=== PATIENT | male | born 1980 | race Caucasian/White ===

== ENCOUNTER 2023-10-06 09:02 | Emergency (ER) | payer SELFPAY ==
[2023-10-06 09:18] VITALS: TEMP 97.2
--- NOTE | 2023-10-06 09:18 | ERPHSYRPT ---
- History of Present Illness Time Seen by Provider: 10/06/23 09:15 Source: patient Exam Limitations: no limitations Physician History: Patient is a 42-year-old male presents to our emergency department for evaluation of nonspecific complaints x 2 days. Patient complaining of generalized bodyaches intermittent abdominal cramping headache. Symptoms have been ongoing for the past several days. No associated chest pain or shortness of breath patient works as a used armored car guard. No obvious exposures. Patient has been tested 3 times for COVID. at bedside reports all 3 test were negative. No nausea no vomiting no diarrhea. Patient's last bowel movement was 3 days ago. states patient does not get regular checkups. He reports intermittent fevers at home. Patient currently afebrile. Patient states he is otherwise healthy and not taking any medications. and patient voiced no other complaints or concerns at this time. Portions of this note were created with voice recognition technology. There may be grammatical, spelling, punctuation or sound alike errors Timing/Duration: week(s) (2 days) Severity: moderate Modifying Factors: Improves With: nothing Associated Symptoms: other (Intermittent abdominal cramping no abdominal pain at the present time.) Allergies/Adverse Reactions: No Known Drug Allergies Allergy (Unverified 10/06/23 09:22) - Review of Systems Constitutional: No Symptoms, No Fever, No Chills Eyes: No Symptoms Ears, Nose, & Throat: No Symptoms Respiratory: No Symptoms, No Cough, No Dyspnea Cardiac: No Symptoms, No Chest Pain, No Edema, No Syncope Abdominal/Gastrointestinal: No Symptoms, No Abdominal Pain, No Nausea, No Vomiting, No Diarrhea Genitourinary Symptoms: No Symptoms, No Dysuria Musculoskeletal: No Symptoms, No Back Pain, No Neck Pain Skin: No Symptoms, No Rash Neurological: No Symptoms, No Dizziness, No Focal Weakness, No Sensory Changes Psychological: No Symptoms Endocrine: No Symptoms Hematologic/Lymphatic: No Symptoms Immunological/Allergic: No Symptoms All Other Systems: Reviewed and Negative - Nursing Vital Signs Nursing Vital Signs: Initial Vital Signs Temperature 97.2 F 10/06/23 09:07 Pulse Rate 102 H 10/06/23 09:07 Respiratory Rate 18 10/06/23 09:07 Blood Pressure 143/97 10/06/23 09:07 O2 Sat by Pulse Oximetry 96 10/06/23 09:07 Pain Scale Pain Intensity 0 - Physical Exam General Appearance: no apparent distress, alert Eye Exam: PERRL/EOMI, eyes nml inspection Ears, Nose, Throat Exam: normal ENT inspection, moist mucous membranes Neck Exam: normal inspection, non-tender, supple, full range of motion Respiratory Exam: normal breath sounds, lungs clear, No respiratory distress Cardiovascular Exam: regular rate/rhythm, normal heart sounds, normal peripheral pulses Gastrointestinal/Abdomen Exam: soft, normal bowel sounds, No tenderness, No mass Back Exam: normal inspection, normal range of motion, No CVA tenderness, No vertebral tenderness Extremity Exam: normal inspection, normal range of motion, pelvis stable Neurologic Exam: alert, oriented x 3, cooperative, normal mood/affect, sensation nml, No motor deficits Skin Exam: normal color, warm, dry, No rash Lymphatic Exam: No adenopathy SpO2 Interpretation: normal SpO2: 96 O2 Delivery: Room Air - Course Nursing assessment & vital signs reviewed: Yes - CT Exams Abdomen/Pelvis CT Interpretation: Tele-radiologist Report (Cystitis, fatty liver, splenomegaly bilateral gynecomastia) Ordered Tests: Active Orders 24 hr Category Date Time Status Drapery Operator STAT Care 10/06/23 09:18 Active IV Insertion STAT Care 10/06/23 09:18 Active Pulse Oximetry (ED) STAT Care 10/06/23 09:18 Active ABDOMEN AND PELVIS W/0 CONTRAS [CT] Stat Exams 10/06/23 11:35 Completed BLOOD CULTURE Stat Lab 10/06/23 09:45 Received CBC W DIFF Stat Lab 10/06/23 09:18 Completed CMP Stat Lab 10/06/23 09:45 Completed CULTURE,URINE Stat Lab 10/06/23 09:31 Received Lactic Acid Stat Lab 10/06/23 09:35 Completed MONO SCREEN Stat Lab 10/06/23 09:45 Completed POCT GLUCOSE Stat Lab 10/06/23 13:15 Completed TROPONIN Q4H Lab 10/06/23 09:45 Completed TROPONIN Q4H Lab 10/06/23 17:30 Ordered UA W/RFX UR CULTURE Stat Lab 10/06/23 09:31 Completed Medication Summary Discontinued Medications Generic Name Dose Route Start Last Admin Trade Name Freq PRN Reason Stop Dose Admin Sodium Chloride 1,000 mls @ 999 mls/hr 10/06/23 09:18 10/06/23 10:37 Sodium Chloride 0.9% 1000 Ml IV 10/06/23 10:18 Infused .Q1H1M STA Infusion Sodium Chloride Confirm 10/06/23 09:27 Sodium Chloride 0.9% 1000 Ml Administered 10/06/23 09:28 Dose 1,000 mls @ ud .ROUTE .STK-MED ONE Levofloxacin/Dextrose 500 mg in 100 mls @ 100 mls/hr 10/06/23 11:27 10/06/23 12:47 Levofloxacin 500mg/100ml D5w IV 10/06/23 12:26 Infused STAT STA Infusion Levofloxacin/Dextrose Confirm 10/06/23 11:31 Levofloxacin 500mg/100ml D5w Administered 10/06/23 11:32 Dose 500 mg in 100 mls @ ud IV .STK-MED ONE Lactated Ringer's 1,000 mls @ 999 mls/hr 10/06/23 11:36 10/06/23 12:47 Lactated Ringers IV 10/06/23 12:36 Infused .Q1H1M ONE Infusion Lactated Ringer's Confirm 10/06/23 11:39 Lactated Ringers Administered 10/06/23 11:40 Dose 1,000 mls @ ud IV .STK-MED ONE Ketorolac Tromethamine 30 mg 10/06/23 09:19 10/06/23 09:27 Ketorolac Tromethamine 30 Mg/Ml Inj IV 10/06/23 09:20 30 mg STAT ONE Administration Ketorolac Tromethamine Confirm 10/06/23 09:26 Ketorolac Tromethamine 30 Mg/Ml Inj Administered 10/06/23 09:27 Dose 30 mg .ROUTE .STK-MED ONE Metformin HCl 500 mg 10/06/23 13:42 10/06/23 13:52 Metformin Hcl 500 Mg Tablet PO 10/06/23 13:43 500 mg ONCE STA Administration Prochlorperazine Edisylate 10 mg 10/06/23 09:20 10/06/23 09:27 Prochlorperazine Edisylate 10 Mg/2 Ml Vial IV 10/06/23 09:21 10 mg STAT ONE Administration Prochlorperazine Edisylate Confirm 10/06/23 09:26 Prochlorperazine Edisylate 10 Mg/2 Ml Vial Administered 10/06/23 09:27 Dose 10 mg .ROUTE .STK-MED ONE Lab/Rad Data: Laboratory Result Diagrams 10/06/23 09:18 10/06/23 09:45 Laboratory Results 10/06/23 10/06/23 10/06/23 Range/Units 13:15 09:50 09:45 WBC (4.23-9.07) x10^3/uL RBC (4.63-6.08) x10^6/uL Hgb (13.7-17.5) g/dL Hct (40.1-51.0) % MCV (79.0-92.2) fL MCH (25.7-32.2) pg MCHC (32.3-36.5) g/dL RDW (11.6-14.4) % Plt Count (163-337) x10^3/uL MPV (9.4-12.4) fL Gran % (34.0-67.9) % Immature Gran % (Auto) (0.001-0.429) % Nucleat RBC Rel Count (0.00-0.2) % Eos # (Auto) (0.04-0.54) x10^3/uL Immature Gran # (Auto) (0.001-0.031) x10^3u/L Absolute Lymphs (auto) (1.32-3.57) x10^3/uL Absolute Monos (auto) (0.30-0.82) x10^3/uL Absolute Nucleated RBC (0.00-0.012) x10^3u/L Lymphocytes % (21.8-53.1) % Monocytes % (5.3-12.2) % Eosinophils % (0.8-7.0) % Basophils % (0.2-1.2) % Absolute Granulocytes (1.78-5.38) x10^3/uL Basophils # (0.01-0.08) x10^3/uL Sodium (135-145) mmol/L Potassium (3.5-5.1) mmol/L Chloride (98-107) mmol/L Carbon Dioxide (22-30) mmol/L Anion Gap (5-15) MEQ/L BUN (9-20) mg/dL Creatinine (0.66-1.25) mg/dL Estimated GFR ML/MIN Glucose (74-106) mg/dL POC Glucometer 281 H (74 to 106) mg/dL Lactic Acid (0.4-2.0) Calcium (8.4-10.2) mg/dL Total Bilirubin (0.2-1.3) mg/dL AST (17-59) U/L ALT (0-50) U/L Alkaline Phosphatase (38-126) U/L Troponin I (0.000-0.033) ng/mL Serum Total Protein (6.3-8.2) g/dL Albumin (3.5-5.0) g/dL Urine Color (Yellow) Urine Appearance (Clear) Urine pH (4.6-8.0) Ur Specific [place] (1.005-1.030) Urine Protein (Negative) Urine Glucose (UA) (Negative) mg/dL Urine Ketones (Negative) Urine Blood (Negative) Urine Nitrite (Negative) Urine Bilirubin (Negative) Urine Urobilinogen (0.2) mg/dL Ur Leukocyte Esterase (Negative) U Hyaline Cast (Auto) (0-2) /LPF Urine Microscopic RBC (0-5) /HPF Urine Microscopic WBC (0-5) /HPF Ur Epithelial Cells (None Seen) /HPF Urine Bacteria (None Seen) /HPF Ur Yeast w Hyphae (None Seen) /HPF Urine Culture Reflexed (NO) Monoscreen NEGATIVE (NEGATIVE) Influenza Type A Ag NEGATIVE (NEGATIVE) Influenza Type B Ag NEGATIVE (NEGATIVE) RSV (PCR) NEGATIVE (NEGATIVE) SARS-CoV-2 (PCR) NEGATIVE (NEGATIVE) 10/06/23 10/06/23 10/06/23 Range/Units 09:45 09:45 09:35 WBC (4.23-9.07) x10^3/uL RBC (4.63-6.08) x10^6/uL Hgb (13.7-17.5) g/dL Hct (40.1-51.0) % MCV (79.0-92.2) fL MCH (25.7-32.2) pg MCHC (32.3-36.5) g/dL RDW (11.6-14.4) % Plt Count (163-337) x10^3/uL MPV (9.4-12.4) fL Gran % (34.0-67.9) % Immature Gran % (Auto) (0.001-0.429) % Nucleat RBC Rel Count (0.00-0.2) % Eos # (Auto) (0.04-0.54) x10^3/uL Immature Gran # (Auto) (0.001-0.031) x10^3u/L Absolute Lymphs (auto) (1.32-3.57) x10^3/uL Absolute Monos (auto) (0.30-0.82) x10^3/uL Absolute Nucleated RBC (0.00-0.012) x10^3u/L Lymphocytes % (21.8-53.1) % Monocytes % (5.3-12.2) % Eosinophils % (0.8-7.0) % Basophils % (0.2-1.2) % Absolute Granulocytes (1.78-5.38) x10^3/uL Basophils # (0.01-0.08) x10^3/uL Sodium 134 L (135-145) mmol/L Potassium 3.9 (3.5-5.1) mmol/L Chloride 102 (98-107) mmol/L Carbon Dioxide 21 L (22-30) mmol/L Anion Gap 15.3 H (5-15) MEQ/L BUN 19 (9-20) mg/dL Creatinine 0.99 (0.66-1.25) mg/dL Estimated GFR 96.3 ML/MIN Glucose 301 H (74-106) mg/dL POC Glucometer (74 to 106) mg/dL Lactic Acid 1.1 (0.4-2.0) Calcium 9.3 (8.4-10.2) mg/dL Total Bilirubin 1.80 H (0.2-1.3) mg/dL AST 129 H (17-59) U/L ALT 138 H (0-50) U/L Alkaline Phosphatase 128 H (38-126) U/L Troponin I < 0.012 (0.000-0.033) ng/mL Serum Total Protein 6.5 (6.3-8.2) g/dL Albumin 3.7 (3.5-5.0) g/dL Urine Color (Yellow) Urine Appearance (Clear) Urine pH (4.6-8.0) Ur Specific [place] (1.005-1.030) Urine Protein (Negative) Urine Glucose (UA) (Negative) mg/dL Urine Ketones (Negative) Urine Blood (Negative) Urine Nitrite (Negative) Urine Bilirubin (Negative) Urine Urobilinogen (0.2) mg/dL Ur Leukocyte Esterase (Negative) U Hyaline Cast (Auto) (0-2) /LPF Urine Microscopic RBC (0-5) /HPF Urine Microscopic WBC (0-5) /HPF Ur Epithelial Cells (None Seen) /HPF Urine Bacteria (None Seen) /HPF Ur Yeast w Hyphae (None Seen) /HPF Urine Culture Reflexed (NO) Monoscreen (NEGATIVE) Influenza Type A Ag (NEGATIVE) Influenza Type B Ag (NEGATIVE) RSV (PCR) (NEGATIVE) SARS-CoV-2 (PCR) (NEGATIVE) 10/06/23 10/06/23 Range/Units 09:31 09:18 WBC 6.1 (4.23-9.07) x10^3/uL RBC 5.32 (4.63-6.08) x10^6/uL Hgb 16.2 (13.7-17.5) g/dL Hct 48.0 (40.1-51.0) % MCV 90.2 (79.0-92.2) fL MCH 30.5 (25.7-32.2) pg MCHC 33.8 (32.3-36.5) g/dL RDW 11.9 (11.6-14.4) % Plt Count 120 L (163-337) x10^3/uL MPV 10.7 (9.4-12.4) fL Gran % 87.9 H (34.0-67.9) % Immature Gran % (Auto) 0.2 (0.001-0.429) % Nucleat RBC Rel Count 0.0 (0.00-0.2) % Eos # (Auto) 0.03 L (0.04-0.54) x10^3/uL Immature Gran # (Auto) 0.01 (0.001-0.031) x10^3u/L Absolute Lymphs (auto) 0.30 L (1.32-3.57) x10^3/uL Absolute Monos (auto) 0.38 (0.30-0.82) x10^3/uL Absolute Nucleated RBC 0.00 (0.00-0.012) x10^3u/L Lymphocytes % 4.9 L (21.8-53.1) % Monocytes % 6.2 (5.3-12.2) % Eosinophils % 0.5 L (0.8-7.0) % Basophils % 0.3 (0.2-1.2) % Absolute Granulocytes 5.38 (1.78-5.38) x10^3/uL Basophils # 0.02 (0.01-0.08) x10^3/uL Sodium (135-145) mmol/L Potassium (3.5-5.1) mmol/L Chloride (98-107) mmol/L Carbon Dioxide (22-30) mmol/L Anion Gap (5-15) MEQ/L BUN (9-20) mg/dL Creatinine (0.66-1.25) mg/dL Estimated GFR ML/MIN Glucose (74-106) mg/dL POC Glucometer (74 to 106) mg/dL Lactic Acid (0.4-2.0) Calcium (8.4-10.2) mg/dL Total Bilirubin (0.2-1.3) mg/dL AST (17-59) U/L ALT (0-50) U/L Alkaline Phosphatase (38-126) U/L Troponin I (0.000-0.033) ng/mL Serum Total Protein (6.3-8.2) g/dL Albumin (3.5-5.0) g/dL Urine Color [place] A (Yellow) Urine Appearance Cloudy A (Clear) Urine pH 5.0 (4.6-8.0) Ur Specific [place] >=1.030 A (1.005-1.030) Urine Protein 30 (Negative) Urine Glucose (UA) >=1000 A (Negative) mg/dL Urine Ketones 80 A (Negative) Urine Blood Negative (Negative) Urine Nitrite Positive A (Negative) Urine Bilirubin Moderate A (Negative) Urine Urobilinogen 1.0 A (0.2) mg/dL Ur Leukocyte Esterase Small A (Negative) U Hyaline Cast (Auto) NONE SEEN (0-2) /LPF Urine Microscopic RBC >100 A (0-5) /HPF Urine Microscopic WBC 11-20 A (0-5) /HPF Ur Epithelial Cells None Seen (None Seen) /HPF Urine Bacteria None Seen (None Seen) /HPF Ur Yeast w Hyphae Many A (None Seen) /HPF Urine Culture Reflexed YES (NO) Monoscreen (NEGATIVE) Influenza Type A Ag (NEGATIVE) Influenza Type B Ag (NEGATIVE) RSV (PCR) (NEGATIVE) SARS-CoV-2 (PCR) (NEGATIVE) - Progress Progress: improved Progress Note: 42-year-old male presents to our ED for evaluation of generalized weakness intermittent abdominal cramping. Physical exam otherwise nonremarkable. Workup reveals a urinary tract infection with glucosuria. Patient has a blood sugar level of 300. Patient also observed to be dehydrated. IV fluids infused. Blood sugar rechecked was 281. Mildly elevated liver enzymes of unclear etiology. However this will need to be followed. Patient received IV Levaquin to treat UTI. A prescription for ciprofloxacin forwarded to patient's pharmacy. Management discussed with Dr. Kong at 1:40 PM who will see patient October 26. In the meantime Dr. Kong advised metformin 500 mg extended release. 1 tab p.o. daily for 1 week followed by 1 pill twice a day until his scheduled appointment to see Dr. Kong. Significant other at bedside. We discussed plan of care. All questions answered. They voiced no other concerns at this time. Will discharge patient home. They agree to follow-up as descri bed above. Portions of this note were created with voice recognition technology. There may be grammatical, spelling, punctuation or sound alike errors Complexity problem addressed is moderate acute complicated. No critical care time. Complexity data reviewed and analyzed is extensive. Test ordered chest reviewed results analyzed and correlated clinically with history and physical exam. Management discussed with Dr. Kong family physician whom he will be following up with. Risk of complication and or risk of morbidity/mortality patient management is moderate. A prescription for metformin and ciprofloxacin forwarded to patient's pharmacy. Vital stable. Time spent to discharge patient is approximately 20 minutes. Plan of care established for shared decision making. No social determinants of health present impede follow-up. Portions of this note were created with voice recognition technology. There may be grammatical, spelling, punctuation or sound alike errors 10/06/23 13:56 10/06/23 14:05 Counseled pt/family regarding: lab results, diagnosis, rad results - Departure Departure Disposition: Observation Clinical Impression: UTI (urinary tract infection), Cystitis, Glucosuria, Diabetes, Dehydration, Headache, Myalgias, Elevated liver enzymes Condition: Stable Critical Care Time: No Referrals: DOCTOR,NO FAMILY [Primary Care Provider] - Follow up/PCP as directed LORETTA KONG DO [ACTIVE STAFF] - Follow up/PCP as directed Instructions: High Blood Sugar, Adult ED Additional Instructions: Discharge/Care Plan HARSH HARDY was seen on 10/06/23 in the Emergency Room. The patient was counseled regarding Diagnosis,Lab results, Imaging studies, need for follow up and when to return to the Emergency Room. Prescriptions given: Discharge Note I have spoken with the patient and/or caregivers. I have explained the patient's condition, diagnosis and treatment plan based on the information available to me at this time. I have answered the patient's and/or caregiver's questions and addressed any concerns. The patient and/or caregivers have as good understanding of the patient's diagnosis, condition and treatment plan as can be expected at this point. The vital signs have been stable. The patient's condition is stable and appropriate for discharge from the emergency department. The patient will pursue further outpatient evaluation with the primary care physician or other designated or consulting physician as outlined in the discharge instructions. The patient and/or caregivers are agreeable to this plan of care and follow-up instructions have been explained in detail. The patient and/or caregivers have received these instruction. The patient/and or caregivers are aware that any significant change in condition or worsening of symptoms should prompt an immediate return to this or the closest emergency department or call 911. Prescriptions: Ciprofloxacin [Cipro 500 MG] 500 mg PO BID #14 tablet Metformin HCl [Metformin HCl ER] 500 mg PO DAILY 18 Days #29 tablet
[2023-10-06] MEDS ORDERED: Compazine 10 MG/2 ML ONE (09:26)
[2023-10-06] MEDS ORDERED: TORAdol 30 mg Injection ONE (09:26)
[2023-10-06] MEDS: Compazine 10 MG/2 ML IV ONE (09:27)
[2023-10-06] MEDS ORDERED: Sodium Chloride 0.9% 1000 ML 1,000 ML ONE (09:27)
[2023-10-06] MEDS: TORAdol 30 mg Injection IV ONE (09:27)
[2023-10-06] MEDS: Sodium Chloride 0.9% 1000 ML 1,000 ML IV STA (09:28)
[2023-10-06 09:55] LABS: Absolute Neutrophil Ct (ANC) 5.38 x10^3/uL (1.78-5.38); BASOPHIL % 0.3 % (0.2-1.2); Basophil (Absolute #) 0.02 x10^3/uL (0.01-0.08); Eosinophil % 0.5 % (0.8-7.0); Eosinophil (Absolute #) 0.03 x10^3/uL (0.04-0.54); Hemoglobin 16.2 g/dL (13.7-17.5); IMMATURE GRAN # 0.01 x10^3u/L (0.001-0.031); IMMATURE GRAN % 0.2 % (0.001-0.429); Lymphocytes % 4.9 % (21.8-53.1); Mean Cell Volume 90.2 fL (79.0-92.2); Mean Corpuscular Hemoglobin 30.5 pg (25.7-32.2); Mean Corpuscular Hgb Concent. 33.8 g/dL (32.3-36.5); Mean Platelet Volume 10.7 fL (9.4-12.4); Monocyte (Absolute #) 0.38 x10^3/uL (0.30-0.82); Monocytes % 6.2 % (5.3-12.2); Neutrophil % 87.9 % (34.0-67.9); Platelet Count 120 x10^3/uL (163-337); Red Blood Count 5.32 x10^6/uL (4.63-6.08); Red Cell Distribution Width 11.9 % (11.6-14.4); White Blood Count 6.1 x10^3/uL (4.23-9.07)
[2023-10-06 10:07] LABS: ALBUMIN 3.7 g/dL (3.5-5.0); ANION GAP 15.3 MEQ/L (5-15); BILIRUBIN,TOTAL 1.8 mg/dL (0.2-1.3); Calcium 9.3 mg/dL (8.4-10.2); Creatinine 1 0.99 mg/dL (0.66-1.25); EST GLOMERULAR FILTRATION RATE 96.3 ML/MIN; Potassium 3.9 mmol/L (3.5-5.1); Total Protein 6.5 g/dL (6.3-8.2)
[2023-10-06 10:23] LABS: Appearance Cloudy (Clear); Bacteria None Seen /HPF (None Seen); Bilirubin Moderate (Negative); Blood Negative (Negative); Epithelial Cells None Seen /HPF (None Seen); Glucose, Urine >=1000 mg/dL (Negative); Hyaline Casts NONE SEEN /LPF (0-2); Ketones 80 (Negative); Leukocyte Esterase Small (Negative); Nitrite Positive (Negative); Protein,Urine Dip 30 (Negative); RBC >100 /HPF (0-5); Specific Gravity >=1.030 (1.005-1.030)
[2023-10-06 10:35] LABS: Hyphae Yeast Many /HPF (None Seen)
[2023-10-06 10:36] LABS: ADD URINE CULTURE? YES (NO)
[2023-10-06 10:51] LABS: INFLUENZA A NEGATIVE (NEGATIVE); INFLUENZA B NEGATIVE (NEGATIVE); RESPIRATORY SYNCTIAL VIRUS NEGATIVE (NEGATIVE); SARS-CoV-2 Xpert Express NEGATIVE (NEGATIVE)
[2023-10-06] MEDS ORDERED: Levofloxacin 500MG/100ML D5W 500 MG/100 ML BAG IV ONE (11:31)
[2023-10-06] MEDS: Levofloxacin 500MG/100ML D5W 500 MG/100 ML BAG IV STA (11:33)
[2023-10-06 11:37] VITALS: O2SAT 96
[2023-10-06] MEDS ORDERED: Lactated Ringers 1,000 ML IV ONE (11:39)
[2023-10-06] MEDS: Lactated Ringers 1,000 ML IV ONE (11:42)
--- NOTE | 2023-10-06 13:04 | XRAY ---
Indication: Pain, headache, fever, nausea, and vomiting. Multiple contiguous axial images obtained through abdomen and pelvis without contrast. Comparison: None Lung bases demonstrates minimal dependent atelectasis. No infiltrate or effusion. Heart not enlarged. Incidental bilateral gynecomastia. Noncontrasted stomach and bowel loops appear nonobstructed with normal appendix. Mild scattered sigmoid diverticulosis without diverticulitis. Normal distended urinary bladder demonstrates mild circumferential wall thickening, possible cystitis. Diffuse fatty liver and 14.4 cm splenomegaly. No free fluid/air. Remaining liver, gallbladder, pancreas, spleen, adrenal glands, kidneys, ureters, bladder, and aorta are unremarkable for noncontrast exam. Osseous structures intact. Impression: 1. Urinary bladder circumferential wall thickening. Rule out cystitis. 2. Chronic findings including sigmoid diverticulosis, fatty liver, splenomegaly, and bilateral gynecomastia. 3. Remaining CT abdomen/pelvis without contrast exam is negative.
[2023-10-06 13:52] VITALS: BP 127/91; PULSE 94; RESP 23
[2023-10-06] MEDS: Glucophage 500 MG PO STA (13:52)
== END 2023-10-06 14:07 | disposition home or self-care (01) ==
LOC: ED 09:02
DX: N30.90 Cystitis, unspecified without hematuria (principal); R81 Glycosuria; E11.9 Type 2 diabetes mellitus without complications; E86.0 Dehydration; R51.9 Headache, unspecified; M79.10 Myalgia, unspecified site; R74.8 Abnormal levels of other serum enzymes; R10.9 Unspecified abdominal pain; Z79.899 Other long term (current) drug therapy
CPT/HCPCS: 0241U; 36000; 36415; 74176; 80053; 81001; 82947; 83605; 84484; 85025; 86308; 87040; 87077; 87086; 93041; 94760; 96360; 96361; 96365; 96374; 96375; 99284; J1885; J1956; A9270-GY